=== PATIENT | female | born 1965 | race Caucasian/White ===

== ENCOUNTER → 2021-04-18 | Outpatient (CLI) | payer BC, OTHER ==
--- NOTE | 2021-04-19 05:06 | MR ---
EXAMINATION TYPE: MR lumbar spine wo con DATE OF EXAM: 04/18/2021 COMPARISON: None HISTORY: LBP, right side x 4 yrs. No hx trauma or surgery. Multiplanar multiecho imaging of the lumbar spine was performed without contrast. Lumbar vertebra have normal alignment. Disc spaces are fairly normal. There is no compression fractur e. Lumbar nerve roots appear normal. The neural foramina are fairly well-maintained. There is no evid ence of focal bone destruction. There is no lumbar paraspinal mass. Sacroiliac joints are intact. The re are bilateral multiple small renal cortical cysts. IMPRESSION: Negative MR scan of the lumbar spine. No spinal stenosis or lumbar disc herniation. No fracture.
== END | disposition home or self-care (01) ==
LOC: RADMRIMAIN 19:58
PROVIDERS: ATTEND Orthopaedic Surgery
DX: M54.5 Low back pain (principal)
CPT/HCPCS: 72148

== ENCOUNTER → 2021-05-07 | Outpatient (CLI) | payer BC, OTHER ==
--- NOTE | 2021-05-08 11:46 | MR ---
EXAMINATION TYPE: MR thoracic spine wo con DATE OF EXAM: 05/07/2021 COMPARISON: None HISTORY: Right leg weakness. CONTRAST: Performed utilizing 0 mL intravenous Gadavist gadolinium contrast. TECHNIQUE: Multiplanar, multiecho imaging on a 3.0 Gwendolyn magnet is performed through the thoracic spi ne. Spinal cord maintains normal signal through its visualized course. Vertebral body alignment is normal. Vertebral body heights are preserved. Disc heights are preserved. May be some diffuse disc desiccation throughout the thoracic spine. No spinal canal stenosis is evident. Note is made of renal cysts in the left kidney. IMPRESSIONS: 1. No suspicious acute changes MRI thoracic spine.
== END | disposition home or self-care (01) ==
LOC: RADMRIMAIN 20:00
PROVIDERS: ATTEND Orthopaedic Surgery
DX: R53.1 Weakness (principal)
CPT/HCPCS: 72146

== ENCOUNTER → 2022-07-30 | Outpatient (CLI) | payer BC, OTHER ==
--- NOTE | 2022-07-30 10:00 | XR ---
EXAM TYPE: LUMBAR SPINE X RAY SERIES COMPARISON: NONE HISTORY: Pain TECHNIQUE: 4 views are submitted. FINDINGS: Alignment is anatomic. The pedicles are intact. The transverse processes are intact. Vascular calci fications are seen and there is diffuse osteopenia. Facet arthropathy L4-5 and L5-S1. There may be mi nimal anterolisthesis of L5 relative to S1. IMPRESSION: 1. Facet arthropathy L4-5 and L5-S1. Minimal anterolisthesis L5 on S1..
[2022-07-30 14:38] LABS: Basophils # (A) 0.11 X 10*3/uL (0.00-0.10); Basophils % (A) 0.9 %; Eosinophils # (A) 0.14 X 10*3/uL (0.04-0.35); Eosinophils % (A) 1.2 %; HCT 43.1 % (37.2-46.3); HGB 14.2 g/dL (12.0-15.0); Immature Grans, Automated 0.3 %; Lymphocytes # (A) 3.11 X 10*3/uL (0.90-5.00); Lymphocytes % (A) 26.6 %; MCH 30.1 pg (27.0-32.0); MCHC 32.9 g/dL (32.0-37.0); MCV 91.5 fL (80.0-97.0); Mean Platelet Volume 11.8 fL (9.5-12.2); NRBC Per 100 WBC 0 /100 WBCS (0.0-0.0); Neutrophils # (A) 7.58 X 10*3/uL (1.80-7.70); Platelet Count 325 X 10*3/uL (140-440); RBC 4.71 X 10*6/uL (4.10-5.20); RDW 13.9 % (11.5-14.5); WBC 11.68 X 10*3/uL (4.50-10.00)
[2022-07-30 17:35] LABS: African American GFR (CKD) 93.5 (60.0-200.0); Albumin 4.3 g/dL (3.8-4.9); Albumin/Globulin Ratio 2.37 (1.60-3.17); Anion Gap 13.3 mmol/L (10.00-18.00); BUN/Creat Ratio 16.25 Ratio (12.00-20.00); Calcium 9.6 mg/dL (8.7-10.3); Carbon Dioxide 24.4 mmol/L (20.0-27.5); Globulin 1.8 g/dL (1.6-3.3); Non-African American GFR(CKD) 80.7 (60.0-200.0); Potassium 3.8 mmol/L (3.5-5.5); Total Bilirubin 0.4 mg/dL (0.30-1.20); Total Protein 6.1 g/dL (6.2-8.2)
== END | disposition home or self-care (01) ==
LOC: RADXRMAIN 09:24
PROVIDERS: ATTEND Family Medicine
DX: M47.817 Spondylosis without myelopathy or radiculopathy, lumbosacral region (principal); M43.17 Spondylolisthesis, lumbosacral region
CPT/HCPCS: 72100; 80053; 82306; 82607; 82746; 84443; 85025

== ENCOUNTER → 2022-07-30 | Outpatient (CLI) | payer BC, OTHER ==
--- NOTE | 2022-07-30 23:00 | EEG ---
ELECTROENCEPHALOGRAM REPORT CLINICAL HISTORY: This is a 57-year-old woman with reported possible history of seizure by her prior neurologist, who is having frequent falls. The video EEG is obtained to evaluate for seizure and epileptiform discharges. RELEVANT MEDICATION: The patient is not on any seizure medication per the medical record. EEG TYPE: A routine 21-channel EEG is performed with video using the 10/20 electrode placement system. DESCRIPTION: Wakefulness is only obtained. During awake state, the posterior-dominant rhythm consists of [id number] voltage of 9 Hz activity that is well modulated and well sustained. There is no physiological sleep architecture seen. There is no focal slowing. INTERICTAL AND ICTAL: None. ACTIVATION PROCEDURE: Photic stimulation did not evoke a posterior driving response. There is no abnormality during the photic stimulation. Hyperventilation is not performed. CLINICAL INTERPRETATION: This is a normal routine EEG. There is no focal slowing, epileptiform discharge, or seizure on the EEG. Clinical correlation is recommended. MMSRIKANTH / NENAN: [id number] /
== END ==
LOC: NEUROMAIN 08:14
PROVIDERS: ATTEND Family Medicine
DX: R26.9 Unspecified abnormalities of gait and mobility (principal); R29.6 Repeated falls
CPT/HCPCS: 95816

== ENCOUNTER → 2022-10-27 | Outpatient (CLI) | payer BC, OTHER ==
--- NOTE | 2022-10-28 16:06 | US ---
EXAMINATION TYPE: US carotid duplex BILAT DATE OF EXAM: 10/27/2022 COMPARISON: NONE CLINICAL HISTORY: R26.9 UNSPECIFIED ABNORMALITIES OF GAIT AND MOBILITY. RIGHT SIDED WEAKNESS. TECHNIQUE: Carotid duplex ultrasound examination. Indirect Doppler criteria was utilized. FINDINGS: EXAM MEASUREMENTS: RIGHT: Peak Systolic Velocity (PSV) cm/sec ----- Right CCA: 61.9 ----- Right ICA: 56.2 ----- Right ECA: 76.8 ICA/CCA ratio: 0.9 RIGHT: End Diastole cm/sec ----- Right CCA: 19.8 ----- Right ICA: 19.4 ----- Right ECA: 14.7 LEFT: Peak Systolic Velocity (PSV) cm/sec ----- Left CCA: 71.9 ----- Left ICA: 70.3 ----- Left ECA: 72.7 ICA/CCA ratio: 1.0 LEFT: End Diastole cm/sec ----- Left CCA: 19.5 ----- Left ICA: 20.5 ----- Left ECA: 19.8 VERTEBRALS (direction of flow): Right Vertebral: Antegrade Left Vertebral: Antegrade [employer] F[employer]IC[employer] NOTES: No significant stenosis seen IMPRESSION: 1. No significant flow-limiting stenosis bilateral carotid bifurcations. Criteria for Assigning % of Stenosis / Diameter reduction (Estimation based on the indirect measurements of the internal carotid artery velocities (ICA PSV). 1. Normal (no stenosis)=ICA PSV < 125 cm/s: ratio < 2.0: ICA EDV<40 cm/s. 2. Less than 50% stenosis=ICA PSV < 125 cm/s: ratio < 2.0: ICA EDV<40 cm/s. 3. 50 to 69% stenosis=ICA PSV of 125 to 230 cm/s: ration 2.0 ? 4.0: ICA EDV 40-100 cm/s. 4. Greater than 70% stenosis to near occlusion= ICA PSV > 230 cm/s: ratio > 4.0: ICA EDV > 100 cm/s. 5. Near occlusion= ICA PSV velocities may be low or undetectable: variable ratio and ICA EDV. 6. Total occlusion=unable to detect flow.
== END | disposition home or self-care (01) ==
LOC: RADUSWWP 16:04
PROVIDERS: ATTEND Psychiatry & Neurology Neurology
DX: R26.9 Unspecified abnormalities of gait and mobility (principal); R53.1 Weakness
CPT/HCPCS: 93880

== ENCOUNTER 2022-11-03 10:52 | Day surgery (SDC) | payer BC, OTHER ==
[~2022-11-03 10:52] MED LIST: LACTATED RINGERS 1,000 ML IV SCH; LIDOCAINE 1% (10MG/ML) FOR IV START INTRADERMA PRN
[2022-11-03 12:06] VITALS: TEMP 97.6
[2022-11-03] MEDS ORDERED: MIDAZOLAM 2 MG/2 ML VIAL ONE (12:09)
[2022-11-03] MEDS ORDERED: fentaNYL (PF) 50 MCG/ML 2 ML AMP ONE (12:09)
--- NOTE | 2022-11-03 12:18 | P.PCN ---
Date of Procedure: 11/03/22 Procedure(s) Performed: Preoperative diagnosis: Demyelinating disease Post operative diagnoses: Demyelinating disease Procedure= lumbar puncture Anesthesia= moderate sedation with Versed 2 mg , and fentanyl 50 g, local infiltration with lidocaine 1% 2 mL. Sedation start time : 1210 Sedation end time : 1215 Condition: stable Complication: none. Description of the procedure procedure risk and benefits discussed with the patient and family, consent signed. Patient and the procedure area placed in sitting position, back prepped with chlorhexidine 3 times been local infiltration of the skin and subcutaneous tissue with lidocaine 1% 2 mL for skin and subcu interstitial frustrations at L4 5 levels then 22-gauge Quincke-type needle advanced slowly at L4- 5 interlaminar space there was positive cerebrospinal fluid which was clear, no heme, no paresthesia ,total of 9 ML of clear cerebrospinal fluid collected in 4 different tubes 2-2-1/2 mL in each, then the needle removed and a Band-Aid applied and patient tolerated the procedure well without any complications.
[2022-11-03] MEDS ORDERED: IV FLUID CONTINUATION 900 ML IV ONE (12:23)
[2022-11-03 12:44] LABS: ALT 16 U/L (4-34); AST 19 U/L (14-36)
[2022-11-03 13:00] LABS: T4, Free (Free Thyroxine) 1.12 ng/dL (0.78-2.19)
[2022-11-03 13:21] VITALS: BP 137/81; PULSE 82; RESP 16
[2022-11-03 14:53] LABS: Glucose,CSF 55 mg/dL (40-70); Total Protein,CSF 61 mg/dL (12-60)
[2022-11-03 16:41] LABS: Appearance,CSF Clear; CSF Tube Number 4; Nucleated Cells, CSF 0 u/L (0-5); Red Blood Cell,CSF 0 u/L (0-10)
[2022-11-03 18:59] LABS: Rheumatoid Factor, Qnt <10 IU/mL (0-15)
[2022-11-03 19:54] LABS: Anti-Smith Ab Interp NEGATIVE (NEGATIVE); DNA Double-Stranded NEGATIVE (NEGATIVE)
[2022-11-04 11:16] LABS: Lyme IgG/IgM 0.04 Index
[2022-11-05 13:04] LABS: IgG - CSF 4.4 mg/dL (0.0 - 3.4); IgG Synthesis Rate 7.71 mg/day (0.00 - 3.00); IgG/Albumin Index (CSF) 0.84 (0.00 - 0.77); Immunoglobulin G 733 mg/dL (700 - 1600)
[2022-11-06 11:30] LABS: VDRL, Qualitative CSF Nonreactive (Nonreactive)
== END 2022-11-03 13:50 | disposition home or self-care (01) ==
LOC: ORPAIN 10:52
PROVIDERS: ATTEND Specialist
DX: G37.9 Demyelinating disease of central nervous system, unspecified (principal)
CPT/HCPCS: 86592; 86235 ×3; 84439; 84157; 82945; 82040; 82042; 82784; 83916; 83873; 84443; 84450; 84460; 86431; 89050; 86618; 86780; 86038; 86225; 87801; 62270; J2250; J3010

== ENCOUNTER 2022-11-04 18:03 | Emergency (ER) | payer BC, OTHER ==
[2022-11-04 18:38] VITALS: BP 159/72; PULSE 104; RESP 18; TEMP 98
--- NOTE | 2022-11-04 19:27 | ED ---
General Adult HPI - General Chief complaint: Headache Stated complaint: spinal headache, weakness Time Seen by Provider: 11/04/22 18:50 Source: patient, RN notes reviewed Mode of arrival: ambulatory Limitations: no limitations - History of Present Illness Initial comments: 57 year old female presenting to the emergency department for post-lumbar puncture headache. She had the LP here yesterday. Dr. Burger did the procedure. Today she complains of a headache . She is tried Tylenol and Motrin without relief. Nothing makes the headache better. She denies photophobia, lightheadedness, dizziness, nausea, vomiting. - Related Data Home Medications Medication Instructions Recorded Confirmed Ibuprofen/Diphenhydramine HCl 1 each PO HS 11/03/22 11/03/22 [Advil Pm Liqui-Gels] Naproxen [Naprosyn] 375 mg PO Q12HR 11/03/22 11/03/22 methocarbamoL [Methocarbamol] 500 mg PO DAILY 11/03/22 11/03/22 Allergies Allergy/AdvReac Type Severity Reaction Status Date / Time nitrofurantoin Allergy Nausea & Verified 11/04/22 18:37 [From Macrobid] Vomiting sulfamethoxazole Allergy Nausea & Verified 11/04/22 18:37 [From Bactrim] Vomiting trimethoprim [From Bactrim] Allergy Nausea & Verified 11/04/22 18:37 Vomiting Review of Systems ROS Statement: Those systems with pertinent positive or pertinent negative responses have been documented in the HPI. ROS Other: All systems not noted in ROS Statement are negative. Past Medical History Past Medical History: Eye Disorder Additional Past Medical History / Comment(s): Cataract removed 09/2022, Received three pints of blood for low hgb while teenager r/t menstrual cycle. History of Any Multi-Drug Resistant Organisms: None Reported Past Surgical History: Hysterectomy Additional Past Surgical History / Comment(s): Left Cataract surgery 09/2022, Multiple D&Cs, Partial Hysterectomy. spinal tap. Past Anesthesia/Blood Transfusion Reactions: Motion Sickness Past Psychological History: No Psychological Hx Reported Smoking Status: Current every day smoker Past Alcohol Use History: None Reported Past Drug Use History: None Reported - Past Family History Brother(s) Family Medical History: COPD Additional Family Medical History / Comment(s): emphysema General Exam Limitations: no limitations General appearance: alert, in no apparent distress Head exam: Present: atraumatic, normocephalic, normal inspection Eye exam: Present: normal appearance, PERRL, EOMI. Absent: scleral icterus, conjunctival injection, periorbital swelling ENT exam: Present: normal exam, mucous membranes moist Neck exam: Present: normal inspection. Absent: tenderness, meningismus, lymphadenopathy Respiratory exam: Present: normal lung sounds bilaterally. Absent: respiratory distress, wheezes, rales, rhonchi, stridor Cardiovascular Exam: Present: regular rate, normal rhythm, normal heart sounds. Absent: systolic murmur, diastolic murmur, rubs, gallop, clicks GI/Abdominal exam: Present: soft, normal bowel sounds. Absent: distended, tenderness, guarding, rebound, rigid Extremities exam: Present: normal inspection, full ROM, normal capillary refill. Absent: tenderness, pedal edema, joint swelling, calf tenderness Back exam: Present: normal inspection Neurological exam: Present: alert, oriented X3, CN II-XII intact Psychiatric exam: Present: normal affect, normal mood Skin exam: Present: warm, dry, intact, normal color. Absent: rash Course Vital Signs 11/04/22 18:35 Temperature 98 F Pulse Rate 104 H Respiratory 18 Rate Blood Pressure 159/72 O2 Sat by Pulse 98 Oximetry Medical Decision Making - Medical Decision Making 57-year-old female 1 day status post lumbar puncture presents to the emergency department for headache. Patient was seen and evaluated, physical exam essentially unremarkable. Patient was given 1000 L bolus mixed with caffeine with symptomatic relief in the emergency department. I discussed the natural history of post lumbar puncture headache with patient, return precautions discussed. All questions and concerns were addressed. Patient was discharged in stable condition and advised follow-up with primary care in 1-2 days or as needed. I discussed the case with Dr. Yodit molina with plan for discharge. Disposition Clinical Impression: Headache following lumbar puncture Disposition: HOME SELF-CARE Condition: Stable Instructions (If sedation given, give patient instructions): Acute Headache (ED), Lumbar Puncture (ED) Additional Instructions: He is return to the emergency department if worsening symptoms of dizziness, lightheadedness, headache, nausea, vomiting Is patient prescribed a controlled substance at d/c from ED?: No Referrals: Jules Box MD [Primary Care Provider] - 1-2 days Time of Disposition: 22:18
[2022-11-04] MEDS ORDERED: KETOROLAC 15 MG/ML 1 ML VIAL IVP STA (19:32)
[2022-11-04] MEDS ORDERED: CAFFEINE-SODIUM BENZOATE 1,000 MG in SODIUM CHLORIDE 0.9% 1,000 ML IVPB ONE (20:00)
== END 2022-11-04 22:47 | disposition home or self-care (01) ==
LOC: EC 18:03
DX: G97.1 Other reaction to spinal and lumbar puncture (principal); F17.200 Nicotine dependence, unspecified, uncomplicated; Z88.1 Allergy status to other antibiotic agents; Z88.2 Allergy status to sulfonamides
CPT/HCPCS: 99284; 96365; 96366; 96375; J1885

== ENCOUNTER → 2025-04-25 | Outpatient (CLI) | payer OTHER ==
[2025-04-25 18:16] LABS: Basophils # (A) 0.13 X 10*3/uL (0.00-0.10); Basophils % (A) 0.8 %; Eosinophils # (A) 0.24 X 10*3/uL (0.04-0.35); Eosinophils % (A) 1.5 %; HCT 43.3 % (37.2-46.3); HGB 13.7 g/dL (12.0-15.0); Lymphocytes # (A) 2.96 X 10*3/uL (0.90-5.00); Lymphocytes % (A) 18.5 %; MCHC 31.6 g/dL (32.0-37.0); MCV 94.7 FL (80.0-97.0); Mean Platelet Volume 11.8 FL (9.5-12.2); Monocytes # (A) 0.98 X 10*3/uL (0.20-1.00); Monocytes % (A) 6.1 %; NRBC Per 100 WBC 0 X 10*3/uL (0.00-0.01); Neutrophils # (A) 11.49 X 10*3/uL (1.80-7.70); Neutrophils % (A) 71.7 %; Platelet Count 417 X 10*3/uL (140-440); RBC 4.57 X 10*6/uL (4.10-5.20); RDW 14.4 % (11.5-14.5); WBC 16.03 X 10*3/uL (4.50-10.00)
[2025-04-25 19:48] LABS: Hepatitis B Surface Antigen Nonreactive (Nonreactive)
[2025-04-25 20:04] LABS: Immunoglobulin M 60.1 mg/dL (40.0-280.0)
[2025-04-27 11:12] LABS: ALT 24 U/L (8-44); AST 18 U/L (13-35); Albumin 4.4 g/dL (3.8-4.9); Albumin/Globulin Ratio 1.76 Ratio (1.60-3.17); Alkaline Phosphatase 117 U/L (41-126); Blood Urea Nitrogen 15.6 mg/dL (9.0-27.0); Calcium 9.7 mg/dL (8.7-10.3); Carbon Dioxide 20.8 mmol/L (21.6-31.8); Chloride 106 mmol/L (96-109); Globulin 2.5 g/dL (1.6-3.3); Glucose 138 mg/dL (70-110); Potassium 4.1 mmol/L (3.5-5.5); Sodium 144 mmol/L (135-145); Total Bilirubin 0.2 mg/dL (0.3-1.2); Total Protein 6.9 g/dL (6.2-8.2)
== END | disposition home or self-care (01) ==
LOC: LABWHC1 14:08
PROVIDERS: ATTEND Psychiatry & Neurology Neurology
DX: G35 Multiple sclerosis (principal); Z79.899 Other long term (current) drug therapy
CPT/HCPCS: 36415; 82306; 82784; 85025; 86704; 86707; 87340